=== PATIENT | male | born 1995 | race American Indian/Alaskan Native ===

== ENCOUNTER 2016-12-09 00:02 | Emergency (ER) | payer SELFPAY ==
[2016-12-09 01:25] LABS: Hematocrit 38.9 % (35.5-45.6); Hemoglobin 12.7 gm/dl (11.8-15.2); Mean Corpuscular HGB Conc 33 % (32-34); Mean Corpuscular Hemoglobin 29 pg (28-32); Mean Corpuscular Volume 88 fl (84-94); Platelet Count 312 K/mm3 (140-440); Red Blood Count 4.42 M/mm3 (3.65-5.03); White Blood Count 12.3 K/mm3 (4.5-11.0)
[2016-12-09 01:38] LABS: Anion Gap 15 mmol/L; Blood Urea Nitrogen 9 mg/dL (9-20); Calcium 9.1 mg/dL (8.4-10.2); Carbon Dioxide 24 mmol/L (22-30); Chloride 99.4 mmol/L (98-107); Glucose 90 mg/dL (75-100); Sodium 134 mmol/L (137-145)
[2016-12-09] MEDS ORDERED: NORCO 5/325 PO ONE (03:25)
[2016-12-09] MEDS ORDERED: ROCEPHIN IM ONE (04:08)
[2016-12-09] MEDS ORDERED: XYLOCAINE 1% MPF 5 mL INFILTRATI ONE (04:08)
--- NOTE | 2016-12-09 04:12 | Emergency Department Report ---
ED General Adult HPI - General Chief complaint: Skin/Abscess/Foreign Body Stated complaint: ABDOMINAL PAIN Time Seen by Provider: 12/09/16 03:25 Source: patient Mode of arrival: Ambulatory Limitations: No Limitations - History of Present Illness Initial comments: 21 yo male with no PMHX presenting to ED complainign of BL LYMPHADENOPATHY in his groin. Pt states he noticed the swelling in his groin one month prior. At the same time he noticed a non painful lesion on his penis. Pt admits he is sexually active with both males and females. He occasionally uses barrier protection. Aside from complaints, Pt denies: fever/chills, night sweats, weight loss, headache, neck pain ,chest pain, abdominal pain, N/V/D. patient states he was easily worked up at the health department for STDs however he has not had opportunity to follow up on his results. The work up included "blood work and a biopsy of lymph nodes" -: Gradual, month(s) (1) Location: pelvis, genitals - Related Data Previous Rx's Medication Instructions Recorded Last Taken Type Amoxicillin/K Clav Tab [Augmentin 1 tab PO Q12H #19 tablet 10/30/13 Unknown Rx 875MG] HYDROcodone/APAP 10-325 [[place] 1 each PO Q6HR PRN #16 tablet 10/30/13 Unknown Rx 10/325] predniSONE [Deltasone] 20 mg PO TID #9 tab 10/30/13 Unknown Rx HYDROcodone/APAP 5-325 [[place] 1 each PO Q6HR PRN #15 tablet 12/09/16 Unknown Rx 5/325] Ibuprofen [Motrin 800 MG tab] 800 mg PO Q8HR PRN #20 tablet 12/09/16 Unknown Rx Allergies Allergy/AdvReac Type Severity Reaction Status Date / Time No Known Allergies Allergy Verified 10/30/13 01:36 ED Review of Systems ROS: Stated complaint: ABDOMINAL PAIN Other details as noted in HPI Constitutional: denies: chills, fever Eyes: denies: eye pain, eye discharge, vision change ENT: denies: ear pain, throat pain Respiratory: denies: cough, shortness of breath, wheezing Cardiovascular: denies: chest pain, palpitations Endocrine: no symptoms reported Gastrointestinal: denies: abdominal pain, nausea, diarrhea Genitourinary: other (penile sore ). denies: urgency, dysuria Musculoskeletal: denies: back pain, joint swelling, arthralgia Skin: denies: rash, lesions Neurological: denies: headache, weakness, paresthesias Psychiatric: denies: anxiety, depression Hematological/Lymphatic: denies: easy bleeding, easy bruising ED Past Medical Hx - Past Medical History Previous Medical History?: No - Surgical History Past Surgical History?: No - Social History Smoking Status: Never Smoker Substance Use Type: None - Medications Home Medications: Home Medications Medication Instructions Recorded Confirmed Last Taken Type Amoxicillin/K Clav Tab [Augmentin 1 tab PO Q12H #19 tablet 10/30/13 Unknown Rx 875MG] HYDROcodone/APAP 10-325 [[place] 1 each PO Q6HR PRN #16 tablet 10/30/13 Unknown Rx 10/325] predniSONE [Deltasone] 20 mg PO TID #9 tab 10/30/13 Unknown Rx HYDROcodone/APAP 5-325 [[place] 1 each PO Q6HR PRN #15 tablet 12/09/16 Unknown Rx 5/325] Ibuprofen [Motrin 800 MG tab] 800 mg PO Q8HR PRN #20 tablet 12/09/16 Unknown Rx ED Physical Exam - General Limitations: No Limitations General appearance: alert, in no apparent distress - Head Head exam: Present: atraumatic, normocephalic - Eye Eye exam: Present: normal appearance - ENT ENT exam: Present: mucous membranes moist - Neck Neck exam: Present: normal inspection - Respiratory Respiratory exam: Present: normal lung sounds bilaterally. Absent: respiratory distress - Cardiovascular Cardiovascular Exam: Present: regular rate, normal rhythm. Absent: systolic murmur, diastolic murmur, rubs, gallop - GI/Abdominal GI/Abdominal exam: Present: soft, normal bowel sounds - Rectal Rectal exam: Present: deferred - exam: Present: circumcision, other (pt has BL LAD. there is a single ulcer on the glans of his penis- ventral surface ). Absent: testicular tenderness, urethral discharge, scrotal swelling - Extremities Exam Extremities exam: Present: normal inspection - Back Exam Back exam: Present: normal inspection - Neurological Exam Neurological exam: Present: alert, oriented X3 - Psychiatric Psychiatric exam: Present: normal affect, normal mood - Skin Skin exam: Present: warm, dry, intact, normal color. Absent: rash ED Course Vital Signs 12/09/16 12/09/1617 00:09 00:52 04:33 Temperature 98.3 F 98.3 F Pulse Rate 94 H 94 H Respiratory 18 18 18 Rate Blood Pressure 127/73 127/73 O2 Sat by Pulse 100 100 Oximetry - Reevaluation(s) Reevaluation #1: 12/09/16 06:06 Patient is resting comfortably with no complaints. ED Medical Decision Making - Lab Data Result diagrams: 12/09/16 01:08 12/09/16 01:08 - Radiology Data Final impression CT pelvis with contrast: Bilateral inguinal lymphadenopathy. No abscess formation identified. Differential diagnosis includes infectious, inflammatory, and neoplastic etiologies. Consider tissue sampling and imaging follow-up is warranted. Dr Katherine BARAHONA - Medical Decision Making 21-year-old male with no past medical history has presented to the ED complaining of bilateral lymphadenopathy and painless ulcer on the penis. I have discussed the many differential diagnoses with the patient. DDX Syphilis- patient will be treated with 2.4 IM penicillin benzathine. RPR was drawn however will not return until tomorrow DDX Chanchroid pt treated with Azithromycin 1gm DDX- malignancy- pt given a copy of CT and informed that his symptoms may be secondary to malignanct/ cancer DDX herpes- pt informed to follow up with PCP and health department for the the further work up of STDS including : herpes, HIV At this time patient agrees he stable discharge home. He is aware of all incidental findings on CT, he has been given a copy of all reports, he will follow up with PCP. Critical Care Time: No Critical care attestation.: If time is entered above; I have spent that time in minutes in the direct care of this critically ill patient, excluding procedure time. ED Disposition Clinical Impression: Lymphadenopathy, LAD (lymphadenopathy), inguinal Disposition: [id number] TO HOME OR SELFCARE Is pt being admited?: No Does the pt Need Aspirin: No Condition: Stable Instructions: Lymphadenopathy (ED), Superficial Mass Needle Biopsy (ED) Additional Instructions: please follow up with your primary care doctor for further work up of your enlarge lymph nodes which may be secondary to infectious process or cancer Prescriptions: HYDROcodone/APAP 5-325 [[place] 5/325] 1 each PO Q6HR PRN #15 tablet PRN Reason: Pain Ibuprofen [Motrin 800 MG tab] 800 mg PO Q8HR PRN #20 tablet PRN Reason: Pain , Severe (7-10) Referrals: PRIMARY CARE, [Primary Care Provider] - 2-3 Days FILOMENA SOSA MD [Referring] - 3-5 Days Forms: Work/School Release Form(ED) Time of Disposition: 06:15
[2016-12-09 05:20] LABS: Bacteria,Urine 1+ /HPF (Negative); Bilirubin,Urine NEG (Negative); Blood,Urine NEG (Negative); Ketones,Urine TR mg/dL (Negative); Leukocyte Esterase,Urine MOD (Negative); Mucus,Urine 3+ /HPF; Nitrite,Urine NEG (Negative); Urobilinogen,Urine < 2.0 mg/dL (<2.0)
--- NOTE | 2016-12-09 05:54 | Cat Scan Report ---
FINAL REPORT EXAM: CT PELVIS W CON HISTORY: BL LAD vs abscess TECHNIQUE: CT images are acquired through the pelvis in arterial and delayed venous phases following intravenous administration of contrast. Transaxial , coronal and sagittal reformations are provided. PRIORS: None. FINDINGS: Marked bilateral inguinal lymphadenopathy measures up to about 30 x 22 millimeters on the left on axial series 3, image 59 and 28 x 22 millimeters on the right on axial image 63. No peripherally enhancing fluid collection identified. No pelvic sidewall lymphadenopathy identified. The imaged hollow enteric organs are normal in caliber. Normal appendix. The bony pelvis is intact. Remaining superficial soft tissues are unremarkable. IMPRESSION: Bilateral inguinal lymphadenopathy. No abscess formation identified. Differential diagnosis includes infectious, inflammatory and neoplastic etiologies. Consider tissue sampling and imaging follow-up as warranted.
[2016-12-09] MEDS ORDERED: ZITHROMAX PO ONE (06:05)
[2016-12-09] MEDS ORDERED: BICILLIN L-A IM ONE (06:05)
[2016-12-09] MEDS ORDERED: ROCEPHIN ONE (06:26)
[2016-12-09] MEDS ORDERED: XYLOCAINE 1% MPF 5 mL ONE (06:26)
[2016-12-09 07:29] VITALS: BP 117/75
== END 2016-12-09 07:30 | disposition home or self-care (01) ==
LOC: ED 00:02
DX: R59.1 Generalized enlarged lymph nodes (principal); N48.5 Ulcer of penis
CPT/HCPCS: 36415; 72193; 80048; 81001; 85027; 86592; 87591; 96372; 99284; J0561; J0696; Q9967